=== PATIENT | male | born 1975 | race Caucasian/White ===

== ENCOUNTER 2023-07-17 18:52 | Emergency (ER) | payer BC ==
[~2023-07-17] VITALS: Ht 180.3 cm; Wt 72.6 kg
[2023-07-17 19:59] LABS: BASO % 0.4 % (0.0-1.0); EOS % 0.2 % (1.0-4.0); HEMATOCRIT 38.6 % (42.0-52.0); LYMPH # 1.1 10*3/uL (1.3-4.4); LYMPH % 23.7 % (27.0-41.0); MEAN CELL VOLUME 86.2 fl (80.0-94.0); MEAN CORPUSCULAR HGB CONC 33.7 g/dl (33.0-37.0); MEAN PLATELET VOLUME 10.4 fl (9.6-12.3); MONO # 0.3 10*3/uL (0.1-1.0); MONO % 6.1 % (3.0-9.0); NEUT # 3.3 10*3/uL (2.3-7.9); NEUT % 69.6 % (47.0-73.0); PLATELET COUNT AUTOMATED 184 10*3/uL (130-400); RED BLOOD COUNT 4.48 10*6/uL (4.50-5.90); RED CELL DISTRI WIDTH 12.1 % (0-14.5); WHITE BLOOD COUNT 4.7 10*3/uL (4.8-10.8)
[2023-07-17 20:21] LABS: ALKALINE PHOSPHATASE 83 U/L (46-116); BUN 16 mg/dl (9-23); CHLORIDE 109 mmol/L (98-107); POTASSIUM 4.4 mmol/L (3.4-5.1); SGPT/ALT 17 U/L (10-49); TOTAL PROTEIN 7.1 gm/dL (6.0-8.0)
== END 2023-07-17 21:49 | disposition home or self-care (01) ==
LOC: ED 18:52
PROVIDERS: Internal Medicine
DX: S06.0XAA Concussion with loss of consciousness status unknown, initial encounter (principal); S80.812A Abrasion, left lower leg, initial encounter; R55 Syncope and collapse; Z88.8 Allergy status to other drugs, medicaments and biological substances; W19.XXXA Unspecified fall, initial encounter; Y93.89 Activity, other specified; Y92.009 Unspecified place in unspecified non-institutional (private) residence as the place of occurrence of the external cause; Y99.0 Civilian activity done for income or pay